=== PATIENT | male | born 1995 | race Caucasian/White ===

== ENCOUNTER 2021-08-02 12:08 | Outpatient (REF) | payer BC, SELFPAY | END 2021-08-02 12:09 | disposition home or self-care (01) | LOC: HO.BBR 12:08 | PROVIDERS: Visit Provider Internal Medicine Hematology & Oncology | DX: Z13.89 Encounter for screening for other disorder (principal) ==

== ENCOUNTER 2021-08-09 08:24 | Outpatient (REF) | payer BC, SELFPAY | END 2021-08-09 08:25 | disposition home or self-care (01) | LOC: HO.BBR 08:24 | PROVIDERS: Visit Provider Internal Medicine Hematology & Oncology | DX: Z13.89 Encounter for screening for other disorder (principal) ==

== ENCOUNTER 2021-08-16 13:55 | Outpatient (REF) | payer BC, SELFPAY | END 2021-08-16 13:56 | disposition home or self-care (01) | LOC: HO.BBR 13:55 | PROVIDERS: Visit Provider Internal Medicine Hematology & Oncology | DX: Z13.89 Encounter for screening for other disorder (principal) ==

== ENCOUNTER 2021-08-23 13:58 | Outpatient (REF) | payer BC, SELFPAY | END 2021-08-23 13:59 | disposition home or self-care (01) | LOC: HO.BBR 13:58 | PROVIDERS: Visit Provider Internal Medicine Hematology & Oncology | DX: Z13.89 Encounter for screening for other disorder (principal) ==

== ENCOUNTER 2021-08-30 12:54 | Outpatient (REF) | payer BC, SELFPAY | END 2021-08-30 12:55 | disposition home or self-care (01) | LOC: HO.BBR 12:54 | PROVIDERS: Visit Provider Internal Medicine Hematology & Oncology | DX: Z13.89 Encounter for screening for other disorder (principal) ==

== ENCOUNTER 2021-09-06 12:55 | Outpatient (REF) | payer BC, SELFPAY | END 2021-09-06 12:56 | disposition home or self-care (01) | LOC: HO.BBR 12:55 | PROVIDERS: Visit Provider Internal Medicine Hematology & Oncology | DX: Z13.89 Encounter for screening for other disorder (principal) ==

== ENCOUNTER 2021-09-13 08:52 | Outpatient (REF) | payer BC, SELFPAY | END 2021-09-13 08:53 | disposition home or self-care (01) | LOC: HO.BBR 08:52 | PROVIDERS: Visit Provider Internal Medicine Hematology & Oncology | DX: Z13.89 Encounter for screening for other disorder (principal) ==

== ENCOUNTER 2021-09-20 12:44 | Outpatient (REF) | payer BC, SELFPAY | END 2021-09-20 12:45 | disposition home or self-care (01) | LOC: HO.BBR 12:44 | PROVIDERS: Visit Provider Internal Medicine Hematology & Oncology | DX: Z13.89 Encounter for screening for other disorder (principal) ==

== ENCOUNTER 2021-12-12 12:50 | Outpatient (REF) | payer BC, SELFPAY | END 2021-12-12 12:51 | disposition home or self-care (01) | LOC: HO.BBR 12:50 | PROVIDERS: Visit Provider Internal Medicine Hematology & Oncology | DX: Z13.89 Encounter for screening for other disorder (principal) ==

== ENCOUNTER 2022-02-14 15:01 | Outpatient (REF) | payer BC, SELFPAY | END 2022-02-14 15:02 | disposition home or self-care (01) | LOC: HO.BBR 15:01 | PROVIDERS: Visit Provider Internal Medicine Hematology & Oncology | DX: Z13.89 Encounter for screening for other disorder (principal) ==

== ENCOUNTER 2022-04-17 11:44 | Outpatient (REF) | payer BC, SELFPAY | END 2022-04-17 11:45 | disposition home or self-care (01) | LOC: HO.BBR 11:44 | PROVIDERS: Visit Provider Internal Medicine Hematology & Oncology | DX: Z13.89 Encounter for screening for other disorder (principal) ==

== ENCOUNTER 2022-08-21 15:25 | Outpatient (REF) | payer BC, SELFPAY | END 2022-08-21 15:26 | disposition home or self-care (01) | LOC: HO.BBR 15:25 | PROVIDERS: Visit Provider Internal Medicine Hematology & Oncology | DX: Z13.89 Encounter for screening for other disorder (principal) ==

== ENCOUNTER 2025-02-10 15:33 | Outpatient (REF) | payer BC, SELFPAY ==
--- OUTSIDE RECORDS SUMMARY | 2025-02-10 18:21 | XMS_ITS | Clinical Summary ---
Author Organization [facility] Address [address] [place] [id number] Care Team Providers Care Retoucher Name Role Phone Krzysztof Villegas MD Primary Care Provider [phone] Allergies Active Allergy Reactions Criticality Noted Date Comments Amoxicillin 07/31/2015 Medications No known medications Social History Tobacco Use Types Packs/Day Years Used Date Smoking Tobacco: Never Smokeless Tobacco: Never Alcohol Use Standard Drinks/Week Comments No 0 (1 standard drink = 0.6 oz pur e alcohol) Sex and Gender Information Value Date Recorded Sex Assigned at Not on file Legal Sex Male 6:24 AM EST Gender Identity Not on file Sexual Orientation Not on file Last Filed Vital Signs Vital Sign Reading Time Taken Comments Blood Pressure 124/70 07/13/2018 9:26 AM EST Pulse 68 07/13/2018 9:26 AM EST Temperature 37 C (98.6 F) 07/13/2018 9:26 AM EST Respiratory Rate 18 07/13/2018 9:26 AM EST Oxygen Saturation 98% 07/13/2018 9:26 AM EST Inhaled Oxygen Concentration - - Weight 107 kg (235 lb) 01/15/2018 10:35 PM EDT Height 180.3 cm (5' 11 ) 01/15/2018 10:35 PM EDT Body Mass Index 32.78 01/15/2018 10:35 PM EDT Plan of Treatment Health Maintenance Due Date Last Done Comments HIV Screening 1993 DTaP,Tdap,and Td Vaccines (1 - Tdap) 12/12/2011 Hepatitis B Vaccines (1 of 3 - 19+ 3-dose series) 2012 HPV Vaccines (1 - 3-dose SCD M series) 2020 COVID-19 Vaccine (2023-2 5 season) 2025 Influenza Vaccine (#1) 2025 Zoster Vaccines (1 of 2) 12/12/2043 Hepatitis A Vaccines Aged Out No long er eligible based on patient's age to complete this topic MMR Vaccines Aged Out No longer eligi ble based on patient's age to complete this topic Meningococcal Vaccine Aged Out No moy ivan eligible based on patient's age to complete this topic Pneumococcal Vaccine: Pediat rics (0 to 5 Years) and At-Risk Patients (6 to 49 Years) Aged Out No longer eligible b ased on patient's age to complete this topic Insurance Care Teams Retoucher Relationship Specialty Start Date End Date Krzysztof Villegas MD [address] [place] [phone] PCP - General Internal Medicine 07/13/18
--- OUTSIDE RECORDS SUMMARY | 2025-02-10 18:21 | XMS_ITS | Clinical Summary ---
Author Organization [facility] Address [address] [place] [address] Care Team Providers Care Bowling Alley Refinisher Name Role Phone Nilton Monsalve MD Primary Care Provider [phone] Allergies Active Allergy Reactions Criticality Noted Date Comments Amoxicillin Delirium/Confusion/Psychosis Low 2016 Medications Pseudoeph-Doxyl ubpoh-IL-ZOSH (DAYQUIL/NYQUIL COLD/FLU RELIEF PO) Take 1 Dose by mouth as needed. Active ofloxacin (FLOXIN) 0.3 % otic solution INSTILL 4 DROPS INTO THE RIGHT EAR BID FOR 10 DAYS 0 01/28/2019 Active Active Problems Problem Noted Date Diagnosed Date Hemochromatosis 01/11/2018 Social History Tobacco Use Types Packs/Day Years Used Date Smoking Tobacco: Never Smokeless Tobacco: Never Alcohol Use Standard Drinks/Week Comments No 0 (1 standard drink = 0.6 oz pur e alcohol) AUDIT-C Answer Date Recorded Frequency of Alcohol Consumption Never 02/25/2019 Average Number of Drinks Not on file 019 Frequency of Binge Drinking Not on file 12/2018 Sex and Gender Information Value Date Recorded Sex Assigned at Not on file Legal Sex Male 2:28 PM EST Gender Identity Not on file Sexual Orientation Not on file Last Filed Vital Signs Vital Sign Reading Time Taken Comments Blood Pressure 138/60 05/16/2018 4:31 PM EST Pulse 96 05/16/2018 4:31 PM EST Temperature 37.1 C (98.8 F) 05/16/2018 4:31 PM EST Respiratory Rate 14 02/25/2019 8:57 AM EDT Oxygen Saturation 100% 05/16/2018 4:31 PM EST Inhaled Oxygen Concentration - - Weight 104 kg (229 lb) 02/25/2019 8:57 AM EDT Height 180.3 cm (5' 11 ) 02/25/2019 8:57 AM EDT Body Mass Index 31.94 02/25/2019 8:57 AM EDT Plan of Treatment Health Maintenance Due Date Last Done Comments Hepatitis C Virus Screening 1993 HIV Screening 2006 DTaP/Tdap/Td Vaccines (1 - Tdap) 2012 Hepatitis B Vaccines (1 of 3 - 19+ 3-dose series) 2012 HPV Vaccines (1 - 3-dose SCD M series) 2020 COVID-19 Vaccine ( - 2023-2 5 season) 2025 Pneumococcal Vaccine: Pediat caden (0-5 Years) and At-Risk Patients (6 to 49 Years) Aged Out No longer eligible b ased on patient's age to complete this topic Care Teams Bowling Alley Refinisher Relationship Specialty Start Date End Date Nilton Monsalve MD [address] [place] [phone] PCP - General Internal Medicine 07/26/16
--- OUTSIDE RECORDS SUMMARY | 2025-02-10 18:21 | XMS_ITS ---
Author Name [facility] [[email or web address]]P Organization Unknown Results Test Name/Text Value Interpretation Date Range Source Whole Blood Lactic 1.4 MEQ/L 12/21/2024 0.2 - 1.9 [facility] Ferritin 258.0 NG/ML 12/22/2024 22 - 275 [facility] Monocyte (absolute) 0.8 x10 9/L 12/21/2024 0.3 - 0 .9 [facility] Lymphocyte (absolute) 0.8 x10 9/L Below low normal 1 - 3.3 [facility] Lymphocyte (percent) 6.4 % 12/21/2024 [facility] Eosinophil (percent) 0.1 % 12/21/2024 [facility] Monocyte (percent) 6.4 % 12/21/2024 [facility] Immature Granuloctyes (absolute) 0.1 x10 9/L 12/21/2024 0 - 0.1 [facility] Neutrophil (percent) 85.9 % 12/21/2024 [facility] Eosinophil (absolute) 0.0 x10 9/L 12/21/2024 0 - 0 .4 [facility] Neutrophil (absolute) 11.1 x10 9/L Above high normal 025 1.9 - 6.7 [facility] Immature Granuloctyes (percent) 0.9 % 12/21/2024 [facility] Basophil (percent) 0.3 % 12/21/2024 [facility] Basophil (absolute) 0.0 x10 9/L 12/21/2024 0 - 0.1 [facility] NRBC (percent) 0.0 % 12/21/2024 - [facility] RDW 12.1 % 12/21/2024 11.8 - 14.4 [facility] Platelet Count 242.0 x10 9/L 12/21/2024 168 - 382 [facility] MCV 85.6 fL 12/21/2024 85.2 - 100.2 [facility] MCH 30.5 pg 12/21/2024 27 - 32.4 [facility] HGB 16.8 g/dL Above high normal 12/21/2024 13.4 - 16 R [facility] WBC 12.9 x10 9/L Above high normal 12/21/2024 4.2 - 10 [facility] HCT 47.1 % 12/21/2024 41.2 - 51 [facility] RBC 5.5 x10 12/L 12/21/2024 4.5 - 5.6 [facility]SP NRBC (absolute) 0.0 x10 9/L 12/21/2024 [facility] MPV 9.6 fL 12/21/2024 9.6 - 12.5 [facility] MCHC 35.7 g/dL Above high normal 12/21/2024 29.5 - 34.2 [facility] hs-Troponin I <3.0 ng/L 12/21/2024 3 - 35 [facility] Creatinine 0.83 MG/DL 12/21/2024 0.64 - 1.27 [facility] eGFR 120.0 mL/min/1.73m 2 12/21/2024 90 - [facility] BUN Creatinine Ratio 19.0 12/21/2024 [facility] BUN 16.0 MG/DL 12/21/2024 6 - 24 [facility] CO2 20.0 MEQ/L 12/21/2024 20 - 29 [facility] Anion Gap 10.0 12/21/2024 3 - 13 [facility] Glucose 125.0 MG/DL Above high normal 12/21/2024 67 - 99 [facility] NA 135.0 MEQ/L 12/21/2024 135 - 145 [facility] Chloride 105.0 MEQ/L 12/21/2024 98 - 110 [facility] CA 9.7 MG/DL 12/21/2024 8.4 - 10.2 [facility] K Level 3.8 MEQ/L 12/21/2024 3.6 - 5.1 [facility] Transferrin Saturation 11.0 % Below low normal 12/21/2024 15 - 50 [facility] Magnesium Level 1.5 mg/dL Below low normal 12/21/2024 1.6 - 2.3 [facility] Lipase Level 11.0 IU/L Below low normal 12/21/2024 13 - 55 [facility] Phosphorus Level 2.5 MG/DL 12/21/2024 2.4 - 4.8 [facility] Iron Level 41.0 UG/DL Below low normal 12/21/2024 49 - 181 [facility] CPK 81.0 IU/L 12/21/2024 22 - 247 [facility] ALT 110.0 IU/L Above high normal 12/21/2024 7 - 49 [facility] Bili Direct 0.3 MG/DL 12/21/2024 0 - 0.4 [facility] AST 42.0 IU/L 12/21/2024 12 - 52 [facility] Alkaline Phosphatase 93.0 IU/L 12/21/2024 39 - 117 [facility] Bili Total 1.2 MG/DL 12/21/2024 0.1 - 1.2 [facility] Total Protein 8.3 G/DL 12/21/2024 6.1 - 8.3 [facility] Albumin 4.6 G/DL 12/21/2024 3.4 - 5.1 [facility] TIBC 359.0 UG/DL 12/21/2024 250 - 450 [facility] Transferrin 244.0 mg/dL 12/21/2024 179 - 371 [facility] Whole Blood Lactic 2.1 MEQ/L Above high normal 12/21/2024 0. 2 - 1.9 [facility] Potassium SerPl-sCnc 4.2 mmol/L Normal 05/03/2024 3.5 - 5 .3 [facility] Albumin SerPl-mCnc 4.5 g/dL Normal 05/03/2024 3.6 - 5.1 [facility] ALT SerPl-cCnc 95.0 U/L Above high normal 05/03/2024 9 - 46 [facility] BUN SerPl-mCnc 12.0 mg/dL Normal 05/03/2024 7 - [address] AST SerPl-cCnc 42.0 U/L Above high normal 05/03/2024 10 - 4 0 [facility] CO2 SerPl-sCnc 28.0 mmol/L Normal 05/03/2024 20 - 32 QU EST Calcium SerPl-mCnc 9.6 mg/dL Normal 05/03/2024 8.6 - 10.3 [facility] Sodium SerPl-sCnc 137.0 mmol/L Normal 05/03/2024 135 - 14 6 [facility] ALP SerPl-cCnc 67.0 U/L Normal 05/03/2024 36 - 130 [facility] T Bilirub SerPl-mCnc 0.7 mg/dL Normal 05/03/2024 0.2 - 1.2 [facility] Glucose SerPl-mCnc 83.0 mg/dL Normal 05/03/2024 65 - 99 [facility] Globulin Ser Calc-mCnc 3.4 g/dL (calc) Normal 05/03/2024 1.9 - 3.7 [facility] Prot SerPl-mCnc 7.9 g/dL Normal 05/03/2024 6.1 - 8.[address] Albumin/Glob SerPl 1.3 (calc) Normal 05/03/2024 1 - 2.5 [facility] Chloride SerPl-sCnc 103.0 mmol/L Normal 05/03/2024 98 - 1 10 [facility] Creat SerPl-mCnc 0.77 mg/dL Normal 05/03/2024 0.6 - 1.26 [facility] eGFRcr SerPlBld CKD-EPI 2020 124.0 mL/min/1.73m2 Normal 05/03/2024 - [facility] BUN/Creat SerPl SEE NOTE: Normal 05/03/2024 6 - [address] Service Cmnt-Imp Normal 05/03/2024 QU EST Squamous #/area UrnS HPF NONE SEEN Normal 05/03/2024 - [facility] RBC #/area UrnS HPF NONE SEEN Normal 05/03/2024 - [facility] Leukocyte esterase Ur Ql Strip NEGATIVE Normal 05/03/2024 - [facility] Color Ur YELLOW Normal 05/03/2024 - [facility] Appearance Ur CLEAR Normal 05/03/2024 - [facility] WBC #/area UrnS HPF NONE SEEN Normal 05/03/2024 - [facility] Sp Gr Ur Strip 1.02 Normal 05/03/2024 1.001 - 1.035 [facility] Bilirub Ur Ql Strip NEGATIVE Normal 05/03/2024 - [facility] Hgb Ur Ql Strip NEGATIVE Normal 05/03/2024 - [facility] Bacteria #/area UrnS HPF NONE SEEN Normal 05/03/2024 - [facility] Nitrite Ur Ql Strip NEGATIVE Normal 05/03/2024 - [facility] Ketones Ur Ql Strip NEGATIVE Normal 05/03/2024 - [facility] Glucose Ur Ql Strip NEGATIVE Normal 05/03/2024 - [facility] Prot Ur Ql Strip NEGATIVE Normal 05/03/2024 - QU EST pH Ur Strip < OR = 5.0 Normal 05/03/2024 5 - 8 [facility] Hyaline Casts #/area UrnS LPF NONE SEEN Normal 05/03/2024 - [facility] TIBC SerPl-mCnc 312.0 mcg/dL (calc) Normal 05/03/2024 250 - 425 [facility] Iron SerPl-mCnc 145.0 mcg/dL Normal 05/03/2024 50 - 180 [facility] Ferritin SerPl-mCnc 229.0 ng/mL Normal 05/03/2024 38 - 38 0 [facility] Iron Satn MFr SerPl 46.0 % (calc) Normal 05/03/2024 20 - 48 [facility] TSH SerPl-aCnc 1.91 mIU/L Normal 05/03/2024 0.4 - 4.[address] HDLc SerPl-mCnc 32.0 mg/dL Below low normal 05/03/2024 - [facility] Cholest SerPl-mCnc 170.0 mg/dL Normal 05/03/2024 - 200 [facility] Cholest/HDLc SerPl 5.3 (calc) Above high normal 05/03/2024 - 5 [facility] Trigl SerPl-mCnc 240.0 mg/dL Above high normal 05/03/2024 - 150 [facility] NonHDLc SerPl-mCnc 138.0 mg/dL (calc) Above high normal 05/03/2024 - 130 [facility] LDLc SerPl Calc-mCnc 102.0 mg/dL (calc) Above high normal 05/03/2024 [facility] GGT SerPl-cCnc 30.0 U/L Normal 05/03/2024 3 - 90 [facility] T CK SerPl-cCnc 82.0 U/L Normal 05/03/2024 44 - 196 [facility] HbA1c MFr Bld 5.2 % of total Hgb Normal 05/03/2024 - 5.7 [facility] Eosinophil # Bld Auto 176.0 cells/uL Normal 05/03/2024 15 - 500 [facility] Lymphocytes/leuk NFr Bld Auto 38.0 % Normal 05/03/2024 [facility] Eosinophil/leuk NFr Bld Auto 2.0 % Normal 05/03/2024 [facility] MCHC RBC Auto-mCnc 33.9 g/dL Normal 05/03/2024 32 - 36 [facility] Platelet # Bld Auto 262.0 Thousand/uL Normal 05/03/2024 140 - 400 [facility] Neuts Band/leuk NFr Bld Manual 1.0 % Normal 05/03/2024 [facility] Metamyelocytes # Bld 176.0 cells/uL Above high normal 2023 - [facility] Hct VFr Bld Auto 49.2 % Normal 05/03/2024 38.5 - 50 QU EST Neutrophils # Bld Auto 3960.0 cells/uL Normal 05/03/2024 1500 - 7800 [facility] Neuts Band # Bld 88.0 cells/uL Normal 05/03/2024 0 - 750 [facility] Monocytes/leuk NFr Bld Auto 11.0 % Normal 05/03/2024 [facility] Hgb Bld-mCnc 16.7 g/dL Normal 05/03/2024 13.2 - 17.1 [facility] T PMV Bld Tao-Mekhi 10.7 fL Normal 05/03/2024 7.5 - 12.5 [facility] MCV RBC Auto 89.0 fL Normal 05/03/2024 80 - 100 [facility] Basophils/leuk NFr Bld Auto 1.0 % Normal 05/03/2024 [facility] RDW RBC Auto-Rto 13.1 % Normal 05/03/2024 11 - 15 QU EST MCH RBC Qn Auto 30.2 pg Normal 05/03/2024 27 - [address] RBC # Bld Auto 5.53 Million/uL Normal 05/03/2024 4.2 - 5. 8 [facility] NOTE Normal 05/03/2024 [facility] Monocytes # Bld Auto 968.0 cells/uL Above high normal 2023 200 - 950 [facility] Neutrophils/leuk NFr Bld Auto 45.0 % Normal 05/03/2024 [facility] Lymphocytes # Bld Manual 3344.0 cells/uL Normal 05/03/2024 850 - 3900 [facility] Metamyelocytes/leuk NFr Bld Manual 2.0 % Above high normal 05/03/2024 [facility] WBC # Bld Auto 8.8 Thousand/uL Normal 05/03/2024 3.8 - 10 .8 [facility] Basophils # Bld Auto 88.0 cells/uL Normal 05/03/2024 0 - 200 [facility] HCV Ab SerPl Ql IA TNP Normal 05/03/2024 [facility] HAV IgM SerPl Ql IA TNP Normal 05/03/2024 [facility] HBV surface Ag SerPl Ql IA TNP Normal 05/03/2024 [facility] HBV core IgM SerPl Ql IA TNP Normal 05/03/2024 [facility] BUN SerPl-mCnc 12.0 mg/dL Normal 05/01/2023 7 - [address] ALP SerPl-cCnc 75.0 U/L Normal 05/01/2023 36 - 130 [facility] T AST SerPl-cCnc 27.0 U/L Normal 05/01/2023 10 - 40 [facility] Prot SerPl-mCnc 7.8 g/dL Normal 05/01/2023 6.1 - 8.[address] CO2 SerPl-sCnc 27.0 mmol/L Normal 05/01/2023 20 - 32 QU EST Glucose SerPl-mCnc 84.0 mg/dL Normal 05/01/2023 65 - 99 [facility] Sodium SerPl-sCnc 139.0 mmol/L Normal 05/01/2023 135 - 14 6 [facility] Potassium SerPl-sCnc 4.5 mmol/L Normal 05/01/2023 3.5 - 5 .3 [facility] Creat SerPl-mCnc 0.8 mg/dL Normal 05/01/2023 0.6 - 1.24 Q [facility] Globulin Ser Calc-mCnc 3.3 g/dL (calc) Normal 05/01/2023 1.9 - 3.7 [facility] Calcium SerPl-mCnc 9.7 mg/dL Normal 05/01/2023 8.6 - 10.3 [facility] eGFRcr SerPlBld CKD-EPI 2020 123.0 mL/min/1.73m2 Normal 05/01/2023 - [facility] ALT SerPl-cCnc 63.0 U/L Above high normal 05/01/2023 9 - 46 [facility] Albumin SerPl-mCnc 4.5 g/dL Normal 05/01/2023 3.6 - 5.1 [facility] Chloride SerPl-sCnc 104.0 mmol/L Normal 05/01/2023 98 - 1 10 [facility] Bilirub SerPl-mCnc 0.5 mg/dL Normal 05/01/2023 0.2 - 1.2 [facility] BUN/Creat SerPl SEE NOTE: Normal 05/01/2023 6 - [address] Albumin/Glob SerPl 1.4 (calc) Normal 05/01/2023 1 - 2.5 [facility] pH Ur Strip 5.5 Normal 05/01/2023 5 - 8 [facility] Nitrite Ur Ql Strip NEGATIVE Normal 05/01/2023 - [facility] Prot Ur Ql Strip NEGATIVE Normal 05/01/2023 - QU EST WBC #/area UrnS HPF NONE SEEN Normal 05/01/2023 - [facility] Color Ur YELLOW Normal 05/01/2023 - [facility] Hgb Ur Ql Strip NEGATIVE Normal 05/01/2023 - [facility] Bilirub Ur Ql Strip NEGATIVE Normal 05/01/2023 - [facility] Glucose Ur Ql Strip NEGATIVE Normal 05/01/2023 - [facility] Leukocyte esterase Ur Ql Strip NEGATIVE Normal 05/01/2023 - [facility] Sp Gr Ur Strip 1.021 Normal 05/01/2023 1.001 - 1.035 [facility] Ketones Ur Strip NEGATIVE Normal 05/01/2023 - QU EST Appearance Ur CLEAR Normal 05/01/2023 - [facility] Hyaline Casts #/area UrnS LPF NONE SEEN Normal 05/01/2023 - [facility] Squamous #/area UrnS HPF NONE SEEN Normal 05/01/2023 - [facility] RBC #/area UrnS HPF NONE SEEN Normal 05/01/2023 - [facility] Bacteria #/area UrnS HPF NONE SEEN Normal 05/01/2023 - [facility] Service Cmnt-Imp Normal 05/01/2023 QU EST TSH SerPl-aCnc 2.08 mIU/L Normal 05/01/2023 0.4 - 4.[address] LDLc SerPl Calc-mCnc 96.0 mg/dL (calc) Normal 05/01/2023 [facility] Cholest SerPl-mCnc 157.0 mg/dL Normal 05/01/2023 - 200 [facility] HDLc SerPl-mCnc 32.0 mg/dL Below low normal 05/01/2023 - [facility] Trigl SerPl-mCnc 197.0 mg/dL Above high normal 05/01/2023 - 150 [facility] Cholest/HDLc SerPl 4.9 (calc) Normal 05/01/2023 - 5 [facility] NonHDLc SerPl-mCnc 125.0 mg/dL (calc) Normal 05/01/2023 - 130 [facility] MCV RBC Auto 87.4 fL Normal 05/01/2023 80 - 100 [facility] MCHC RBC Auto-mCnc 34.6 g/dL Normal 05/01/2023 32 - 36 [facility] Monocytes/leuk NFr Bld Auto 11.4 % Normal 05/01/2023 [facility] PMV Bld Tao-Mekhi 10.3 fL Normal 05/01/2023 7.5 - 12.5 [facility] Neutrophils/leuk NFr Bld Auto 46.9 % Normal 05/01/2023 [facility] Monocytes # Bld Auto 798.0 cells/uL Normal 05/01/2023 200 - 950 [facility] Basophils/leuk NFr Bld Auto 0.7 % Normal 05/01/2023 [facility] Eosinophil # Bld Auto 112.0 cells/uL Normal 05/01/2023 15 - 500 [facility] Lymphocytes # Bld Auto 2758.0 cells/uL Normal 05/01/2023 850 - 3900 [facility] MCH RBC Qn Auto 30.3 pg Normal 05/01/2023 27 - [address] Lymphocytes/leuk NFr Bld Auto 39.4 % Normal 05/01/2023 [facility] Neutrophils # Bld Auto 3283.0 cells/uL Normal 05/01/2023 1500 - 7800 [facility] WBC # Bld Auto 7.0 Thousand/uL Normal 05/01/2023 3.8 - 10 .8 [facility] Basophils # Bld Auto 49.0 cells/uL Normal 05/01/2023 0 - 200 [facility] Platelet # Bld Auto 282.0 Thousand/uL Normal 05/01/2023 140 - 400 [facility] Hct VFr Bld Auto 45.9 % Normal 05/01/2023 38.5 - 50 QU EST Eosinophil/leuk NFr Bld Auto 1.6 % Normal 05/01/2023 [facility] RDW RBC Auto-Rto 12.8 % Normal 05/01/2023 11 - 15 QU EST Hgb Bld-mCnc 15.9 g/dL Normal 05/01/2023 13.2 - 17.1 [facility] T RBC # Bld Auto 5.25 Million/uL Normal 05/01/2023 4.2 - 5. 8 [facility] History of Medication Use Medication Directions Dispensed Refills Start Date End Date Stat us No known medications No known medications active Pseudoeph-Doxylamine -DM-APAP (DAYQUIL/NYQUIL COLD/FLU RELIEF PO) Take 1 Dose by mouth as needed. active Allergies Allergen Reaction Severity Comment Documented Date Source Statu s AMOXICILLIN DELERIUM/CONFUSION/P SYCHOS IS 09/12/2016 CCT active Problems Problem Status Onset Date Problem Type Date of Resolution Source Syncope, unspecified syncope type active [facility] Hemochromatosis active 2018-01-11 ProblemAct [facility] Encounters Encounter Type Encounter Reason Primary Diagnosis Location Date Emergency Syncope, unspecified syncope type Syncope, unspecified syncope type [facility] 12/21/2024 Care Team Organization Name Specialty Phone Email Start Date End Da te [facility] 12/22/2024 01/20/2025 [facility] 12/21/2024 [facility] 03/12/20232022
== END 2025-02-10 15:34 | disposition home or self-care (01) ==
LOC: HO.BBR 15:33
PROVIDERS: Visit Provider Physician Assistant Medical
DX: Z13.89 Encounter for screening for other disorder (principal)

== ENCOUNTER 2025-03-10 13:12 | Outpatient (REF) | payer BC, SELFPAY ==
--- OUTSIDE RECORDS SUMMARY | 2025-03-10 17:11 | XMS_ITS | Clinical Summary ---
Author Organization [facility] Address [address] [place] [address] Care Team Providers Care Art Studio Teacher Name Role Phone Nilton Monsalve MD Primary Care Provider [phone] Allergies Active Allergy Reactions Criticality Noted Date Comments Amoxicillin Delirium/Confusion/Psychosis Low 2016 Medications Pseudoeph-Doxyl [id number]-PI-[id number] (DAYQUIL/NYQUIL COLD/FLU RELIEF PO) Take 1 Dose [...] of 3 - 19+ 3-dose series) 2012 COVID-19 Vaccine ( - 2023-2 5 season) 2025 HPV Vaccines (No Doses Required) Completed Pneumococcal Vaccine: Pediat caden (0-5 Years) and At-Risk Patients (6 to 49 Years) Aged Out No longer eligible b ased on patient's age to complete this topic Care Teams Art Studio Teacher Relationship Specialty Start Date End Date Nilton Monsalve MD [address] [place] [phone] PCP - General Internal Medicine 07/26/16
--- OUTSIDE RECORDS SUMMARY | 2025-03-10 17:12 | XMS_ITS | Clinical Summary ---
Author Organization [facility] Address [address] [place] [id number] Care Team Providers Care Hole Digger Truck Driver Name Role Phone Krzysztof Villegas MD Primary Care Provider [phone] Allergies Active Allergy Reactions Criticality Noted Date [...] to complete this topic Insurance Care Teams Hole Digger Truck Driver Relationship Specialty Start Date End Date Krzysztof Villegas MD [address] [place] [phone] PCP - General Internal Medicine 07/13/18
== END 2025-03-10 13:13 | disposition home or self-care (01) ==
LOC: HO.BBR 13:12
PROVIDERS: Visit Provider Physician Assistant Medical
DX: Z13.89 Encounter for screening for other disorder (principal)

== ENCOUNTER 2025-04-10 10:50 | Outpatient (REF) | payer BC, SELFPAY ==
--- OUTSIDE RECORDS SUMMARY | 2025-04-10 11:45 | XMS_ITS | Clinical Summary ---
Author Organization [facility] Address [address] [place] [address] Care Team Providers Care Information Lead Name Role Phone Nilton Monsalve MD Primary Care Provider [phone] Allergies Active Allergy Reactions Criticality Noted Date Comments Amoxicillin Delirium/Confusion/Psychosis Low 2016 Medications Pseudoeph-Doxyl [id number] (DAYQUIL/NYQUIL COLD/FLU RELIEF PO) Take 1 Dose [...] age to complete this topic Care Teams Information Lead Relationship Specialty Start Date End Date Nilton Monsalve MD [address] [place] [phone] PCP - General Internal Medicine 07/26/16
--- OUTSIDE RECORDS SUMMARY | 2025-04-10 11:45 | XMS_ITS | Clinical Summary ---
Author Organization [facility] Address [address] [place] [address] Care Team Providers Care [employer] Name Role Phone Krzysztof Villegas MD Primary Care Provider [phone] Allergies Active Allergy Reactions Criticality Noted Date [...] 3-dose SCD M series) 2020 COVID-19 Vaccine (2024-2 6 season) 2025 Influenza Vaccine (#1) 2025 Zoster Vaccines (1 of 2) 12/12/2043 Hepatitis A Vaccines Aged Out No long er eligible based on patient's age to complete this topic MMR Vaccines Aged Out No longer eligi ble based on patient's age to complete this topic Meningococcal Vaccine Aged Out No moy ivan eligible based on patient's age to complete this topic Pneumococcal Vaccine: At-Ris k and Pediatric Patients (0 to 49 Years) Aged Out No lo nger eligible based on patient's age to complete this topic [facility] Care Teams [employer] Relationship Specialty Start Date End Date Krzysztof Villegas MD [address] [place] [phone] PCP - General Internal Medicine 07/13/18
== END 2025-04-10 10:51 | disposition home or self-care (01) ==
LOC: HO.BBR 10:50
PROVIDERS: Visit Provider Physician Assistant Medical
DX: Z13.89 Encounter for screening for other disorder (principal)